=== PATIENT | male | born 1975 | race Caucasian/White ===

== ENCOUNTER 2017-11-05 21:44 | Inpatient (IN) | payer OTHER ==
[~2017-11-05] VITALS: Ht 190.5 cm; Wt 163.2 kg
[~2017-11-05 21:44] MED LIST: EFFEXOR XR150 MG PO; MULTIPLE VITAM1 EACH PO; NEXIUM40 MG PO; PRILOSEC20.6 MG PO
[2017-11-06 06:45] VITALS: BP 133/71
[2017-11-06 11:35] VITALS: BP 140/75
[2017-11-06 15:32] VITALS: BP 137/72
[2017-11-06 20:42] VITALS: BP 121/63
[2017-11-06 23:36] VITALS: BP 130/64
[2017-11-07 03:58] VITALS: BP 146/77
[2017-11-07 06:49] LABS: BASOPHIL (%) 0.1 % (0-1); EOSINOPHIL (%) 0 % (0-5); HEMATOCRIT 43.6 % (38.0-50.0); HEMOGLOBIN 14.7 G/DL (12.5-16.6); IMMATURE GRANULOCYTE (%) 0.4 % (0.0-0.7); LYMPHOCYTE (%) 18.7 % (15-42); LYMPHOCYTE COUNT 2.4 K/uL (1.0-2.8); MCH 30.1 PG (29.0-34.0); MCHC 33.7 G/DL (30.0-36.0); MCV 89.3 FL (86-99); MONOCYTE (%) 7.2 % (3-12); MONOCYTE COUNT 0.9 K/uL (0-0.8); NEUTROPHIL (%) 73.6 % (45-76); NEUTROPHIL COUNT 9.2 K/uL (1.8-6.4); PLATELET COUNT 226 K/uL (156-360); RBC DIS.WIDTH-CV 12.8 % (11.8-14.6); RBC DIS.WIDTH-SD 41.9 % (39-53); RED BLOOD COUNT 4.88 M/uL (4.00-5.50); WHITE BLOOD COUNT 12.6 K/uL (4.1-10.2)
[2017-11-07 07:34] VITALS: BP 145/73
== END 2017-11-07 11:27 | disposition home or self-care (01) | DRG 621 ==
LOC: ENRESERV 21:44 → 2SOUTH 11-06 06:07 → ENRESERV 11-06 10:53 → 2SOUTH 11-06 11:13 → 2EAST 11-06 11:37 → 2SOUTH 11-06 12:02 → ENPENDDIS 11-07 → 2EAST 11-07 11:27
PROVIDERS: Surgery
PROC: 0DB64Z3 Excision of Stomach, Percutaneous Endoscopic Approach, Vertical (ICD-10-PCS; principal; 2017-11-07)
DX: E66.01 Morbid (severe) obesity due to excess calories (principal); Z68.41 Body mass index [BMI] 40.0-44.9, adult; G47.33 Obstructive sleep apnea (adult) (pediatric)
CPT/HCPCS: 85025; J0131; J0330; J0690; J1100; J1170; J1644; J1650; J1885; J2250; J2405; J2550; J2710; J2765; J3010; J3480; J7120; S0020